=== PATIENT | male | born 1995 | race Two or more races ===

== ENCOUNTER 2021-05-06 08:20 | Emergency (ER) | payer SELFPAY ==
[~2021-05-06] VITALS: Ht 175.3 cm; Wt 160.0 kg
[2021-05-06 08:42] VITALS: BP 141/93
--- NOTE | 2021-05-06 09:08 | RAD ---
XR ELBOW_LEFT, XR HUMERUS_LT 2 VIEWS, XR SHOULDER_LEFT 2+ VIEWS Clinical indications: Reason: left shoulder pain, limited range of motion, unable to rotate for views , history of dislocation. Left shoulder: No acute fracture or dislocation or osteolytic process is evident. No AC joint separat ion is seen. Mild degenerative spurring of the glenohumeral joint is seen. There is a defect of the l ateral humeral head. This may be secondary to an old Hill-Sachs lesion from previous dislocation. Left elbow: No left elbow joint effusion is seen. No acute fracture or dislocation or lytic process i s seen. Left humerus: No acute fracture or lytic process is seen. IMPRESSION: No acute osseous abnormality is evident. Electronically signed by: Abiel Ann MD (05/06/2021 9:05 AM) [id number]
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
[2021-05-06] MEDS ORDERED: HYDROcodone/APAP 5/325MG 1 TAB TABLET PO ONE (09:45)
[2021-05-06] MEDS ORDERED: HYDROcodone/APAP 5/325MG 1 TAB TABLET ONE (10:13)
[2021-05-06] MEDS ORDERED: HYDR-2761 PO (10:23)
== END 2021-05-06 10:35 | disposition home or self-care (01) ==
LOC: ER 08:20
DX: S42.292A Other displaced fracture of upper end of left humerus, initial encounter for closed fracture (principal); S01.81XA Laceration without foreign body of other part of head, initial encounter; M25.512 Pain in left shoulder; M75.82 Other shoulder lesions, left shoulder; Y08.89XA Assault by other specified means, initial encounter; Y93.89 Activity, other specified; Y92.89 Other specified places as the place of occurrence of the external cause; Y99.8 Other external cause status
CPT/HCPCS: 12011; 73030; 73060; 73070; 99284